=== PATIENT | male | born 1975 | race American Indian/Alaskan Native ===

== ENCOUNTER 2017-10-27 22:10 | Emergency (ER) | payer OTHER ==
[2017-10-27 22:24] VITALS: BP 147/89; PULSE 97; RESP 20; TEMP 99; O2SAT 99
[2017-10-27] MEDS ORDERED: Amoxicillin-Clav 500-125 mg Tab PO ONE (23:05)
--- NOTE | 2017-10-27 23:12 | C.PDOC ---
History Of Present Illness Patient is a 41 y/o male who presents to the ED with complaints of cough, sputum , nasal congestion, and throat pain with tactile temperature for the last 5 days. Patient notes sputum is white to yellow in nature. Denies any abdominal pain, nausea, or vomiting. No other physical complaints at this time. Time Seen by Provider: 10/27/17 22:31 Chief Complaint (Nursing): Flu-like Symptoms History Per: Patient History/Exam Limitations: no limitations Onset/Duration Of Symptoms: Days (5) Current Symptoms Are (Timing): Still Present Location Of Pain: Sinus/es Associated Symptoms: Cough, Sputum, Nasal Congestion Recent travel outside of the [place]: No Past Medical History Reviewed: Historical Data, Nursing Documentation, Vital Signs Vital Signs: Last Vital Signs Temp 99 F 10/27/17 22:22 Pulse 97 H 10/27/17 22:22 Resp 20 10/27/17 22:22 BP 147/89 10/27/17 22:22 Pulse Ox 99 10/28/17 02:59 - Medical History PMH: No Chronic Diseases Surgical History: No Surg Hx Family History: States: No Known Family Hx - Social History Hx Tobacco Use: Yes Hx Alcohol Use: No Hx Substance Use: No - Immunization History Hx Tetanus Toxoid Vaccination: No Hx Influenza Vaccination: No Hx Pneumococcal Vaccination: No Review Of Systems ENT: Positive for: Nose Congestion Respiratory: Positive for: Cough, Sputum (white to yellow in nature) Gastrointestinal: Negative for: Nausea, Vomiting, Abdominal Pain Physical Exam - Physical Exam Appears: Non-toxic, No Acute Distress Skin: Warm, Diaphoretic Head: Atraumatic, Normacephalic Eye(s): bilateral: Normal Inspection Ear(s): Bilateral: Normal Nose: Other (congested) Oral Mucosa: Moist Tongue: Normal Appearing Lips: Normal Appearing Throat: Erythema (to bilateral tonsils), Exudate (bilateral tonsils), Other ( mild enlargement of tonsils) Neck: Supple Lymphatic: Adenopathy (cervical) Chest: No Tenderness Cardiovascular: Rhythm Regular, No Murmur Respiratory: Normal Breath Sounds, No Rales, No Rhonchi, No Wheezing Gastrointestinal/Abdominal: Soft, No Tenderness Neurological/Psych: Oriented x3, Normal Speech, Normal Cognition ED Course And Treatment O2 Sat by Pulse Oximetry: 99 Progress Note: Amoxicillin administered. Patient is resting comfortably and is stable for discharge. Discharge instructions discussed with patient. Patient advised to follow up with PMD if symptoms persist. Disposition Counseled Patient/Family Regarding: Diagnosis, Need For Followup, Rx Given - Disposition Disposition: HOME/ ROUTINE Disposition Time: 23:08 Condition: GOOD Additional Instructions: Please take Tylenol or Motrin for pain or fever. Please take Take antibiotics until completed. Gargle with warm salty water several times per day. Sudafed for congestion if needed. Follow up with your doctor in 1-2 days. Return for any worse symptoms. Prescriptions: Amoxicillin [Amoxil 500 mg Cap] 500 mg PO BID #20 cap Pseudoephedrine HCl [Sudafed 12 Hour] 120 mg PO BID PRN #20 tablet.er PRN Reason: Nasal Congestion Instructions: Sore Throat, Adult (DC) Forms: General Discharge Instructions, [facility] (Fijian), Work Excuse - Clinical Impression Clinical Impression: Tonsillitis with exudate - Scribe Statement The provider has reviewed the documentation as recorded by the Scribmarsha Turner All medical record entries made by the Tk were at my direction and personally dictated by me. I have reviewed the chart and agree that the record accurately reflects my personal performance of the history, physical exam, medical decision making, and the department course for this patient. I have also personally directed, reviewed, and agree with the discharge instructions and disposition.
== END 2017-10-27 23:20 | disposition home or self-care (01) ==
LOC: C.ER 22:10
DX: J03.90 Acute tonsillitis, unspecified (principal)